=== PATIENT | female | born 1995 | race Caucasian/White ===

== ENCOUNTER 2019-03-02 04:34 | Emergency (ER) | payer OTHER ==
[2019-03-02] MEDS: ACETAMINOPHEN 325 MG TAB PO (06:37)
[2019-03-02] MEDS: LORAZEPAM 0.5 MG TAB PO (06:37)
[2019-03-02] MEDS: IBUPROFEN 600 MG TAB PO (06:38)
== END 2019-03-02 08:39 | disposition home or self-care (01) ==
LOC: FTE 04:34
DX: S06.0X0A Concussion without loss of consciousness, initial encounter (principal); S00.01XA Abrasion of scalp, initial encounter; X99.8XXA Assault by other sharp object, initial encounter
CPT/HCPCS: 70450; 81025; 99284-25